=== PATIENT | male | born 1960 | race Caucasian/White ===

== ENCOUNTER 2025-05-15 07:55 | Outpatient (CLI) | payer BC, SELFPAY ==
--- NOTE | 2025-05-15 08:15 | CRLHL7_ITS ---
For Patients: As a result of the Century Cures Act, medical imaging exams and procedure reports are released immediately into your electronic medical record. You may view this report before your referring provider. If you have questions, please contact your health care provider. INDICATION: Pain right calf. COMPARISON: None. TECHNIQUE: MR angiography abdominal aorta, pelvis and both lower extremities and feet with intravenous contrast; tricks protocol; 20 cc of Dotarem contrast was injected IV. FINDINGS: Abdominal aorta and bifurcation are unremarkable. Iliac arteries are normal bilaterally. The common femoral artery, deep femoral artery and superficial femoral artery are unremarkable. Popliteal is normal bilaterally. Three-vessel runoff in the right lower extremity all the way into the foot. Continuation of the left peroneal artery as the posterior tibial artery into the foot; normal variant. No abnormalities identified on either side. IMPRESSION: Normal MR angiogram of the abdominal aorta, pelvis and both lower extremities. Dictated by Nacho Ibrahim MD @ 05/20/2025 9:53:26 AM (Electronically Signed)
== END 2025-05-15 07:56 | disposition home or self-care (01) ==
LOC: MRI 07:58
PROVIDERS: PCP Family Medicine; Visit Provider Family Medicine
DX: M79.661 Pain in right lower leg (principal)
CPT/HCPCS: 72198; 73725; A9575